=== PATIENT | female | born 2000 | race American Indian/Alaskan Native ===

== ENCOUNTER 2019-11-02 20:25 | Emergency (ER) | payer BC ==
[2019-11-02 21:24] LABS: Basophils % (Auto) 0.6 % (0.0-1.8); Eosinophils % (Auto) 0.4 % (0.0-4.3); Hematocrit 34.3 % (30.3-42.9); Hemoglobin 11.1 gm/dl (10.1-14.3); Lymphocytes # (Auto) 1.2 K/mm3 (1.2-5.4); Lymphocytes % (Auto) 15.5 % (13.4-35.0); Mean Corpuscular HGB Conc 32 % (30-34); Mean Corpuscular Volume 83 fl (79-97); Monocytes # (Auto) 0.7 K/mm3 (0.0-0.8); Monocytes % (Auto) 9.2 % (0.0-7.3); Platelet Count 286 K/mm3 (140-440); Red Blood Count 4.14 M/mm3 (3.65-5.03); Red Cell Distribution Width 15.1 % (13.2-15.2)
[2019-11-02 22:00] LABS: Bilirubin,Urine NEG (Negative); Blood,Urine LG (Negative); Color,Urine Yellow (Yellow); Mucus,Urine 3+ /HPF
[2019-11-02 22:03] LABS: RBC,Urine > 182.0 /HPF (0.0-6.0)
--- NOTE | 2019-11-02 22:58 | Ultrasound Report ---
Pelvic ultrasound INDICATION: , vaginal bleeding, pelvic pain COMPARISON: None TECHNIQUE: Transabdominal and endovaginal FINDINGS: Uterus measures 9.2 x 4.1 x 6 cm. Endometrial stripe by endovaginal study measures 11 mm. N o fluid is seen within the endometrial canal and no gestational sac is identified within the uterus. No focal uterine abnormalities are seen. The right ovary shows a 6 cm complex cyst with moderate focal internal echogenicity though without in creased vascularity. The left ovary is not identified. No left adnexal mass is seen. Moderate amount of free fluid is noted which appears to have moderate internal echogenicity as can be seen with bloody fluid. This is noted in the cul-de-sac and left adnexal region. IMPRESSION: 1. No IUP is identified 2. Complex right ovarian cyst cystic lesion, indeterminate 3. Moderate amount of free fluid in the pelvis which may be bloody. 4. Ectopic should be strongly considered though study is not definitive. Clinical assessmen t and follow-up are needed. CRITICAL RESULT: Time of Discovery (OFFICE MACHINE SERVICER APPRENTICE/CDT): 2144 Time of Communication (OFFICE MACHINE SERVICER APPRENTICE/CDT): 2149 Licensed Practitioner Receiving Report: Physician therapeutic recreation assistant Kelvin Lane Read-Back Performed: Not applicable. Signer Name: Sheldon Briscoe MD Signed: 11/02/2019 10:54 PM Workstation Name: [id number]
--- NOTE | 2019-11-02 22:58 | Ultrasound Report ---
Pelvic ultrasound INDICATION: , vaginal bleeding, pelvic pain COMPARISON: None TECHNIQUE: Transabdominal and endovaginal FINDINGS: Uterus measures 9.2 x 4.1 x 6 cm. Endometrial stripe by endovaginal study measures 11 mm. N o fluid is seen within the endometrial canal and no gestational sac is identified within the uterus. No focal uterine abnormalities are seen. The right ovary shows a 6 cm complex cyst with moderate focal internal echogenicity though without in creased vascularity. The left ovary is not identified. No left adnexal mass is seen. Moderate amount of free fluid is noted which appears to have moderate internal echogenicity as can be seen with bloody fluid. This is noted in the cul-de-sac and left adnexal region. IMPRESSION: 1. No IUP is identified 2. Complex right ovarian cyst cystic lesion, indeterminate 3. Moderate amount of free fluid in the pelvis which may be bloody. 4. Ectopic should be strongly considered though study is not definitive. Clinical assessmen t and follow-up are needed. CRITICAL RESULT: Time of Discovery (WELL REACTIVATOR OPERATOR/CDT): 2144 Time of Communication (WELL REACTIVATOR OPERATOR/CDT): 2149 Licensed Practitioner Receiving Report: Physician assistant merchandiser Kelvin Lane Read-Back Performed: Not applicable. Signer Name: Sheldon Briscoe MD Signed: 11/02/2019 10:54 PM Workstation Name: [id number]
--- NOTE | 2019-11-02 23:53 | Emergency Department Report ---
HPI - General Chief Complaint: Vaginal Bleeding Time Seen by Provider: 11/02/19 22:24 - HPI HPI: Room 21 The patient is a 19-year-old female present with a chief complaint of pelvic pain and vaginal bleeding. The patient is but has not yet seen an MANAGER PAYER for this . The patient states 4 days ago she had an episode of pelvic cramping and spotting so she went to the hospital had blood work performed but no ultrasound. The patient states the symptoms resolved but then again today she had cramping in the left pelvis and she passed 2 blood clots. Patient states she did not pass any tissue. Patient now complains of mild left-sided pain states her vaginal bleeding has stopped ED Past Medical Hx - Past Medical History Previous Medical History?: No - Surgical History Past Surgical History?: No - Family History Family history: no significant - Social History Smoking Status: Never Smoker Substance Use Type: None (Denies illicit drug use) - Medications Home Medications: Home Medications Medication Instructions Recorded Confirmed Last Taken Type Nitrofurantoin [place]/M-Cryst 100 mg PO Q12HR #20 capsule 11/03/19 Unknown Rx [Macrobid CAP] ED Review of Systems ROS: Stated complaint: CRAMPING/BLOOD CLOT Other details as noted in HPI Constitutional: no symptoms reported Respiratory: no symptoms reported Endocrine: no symptoms reported Gastrointestinal: abdominal pain Genitourinary: abnormal menses Physical Exam - Physical Exam Vital Signs: Vital Signs 11/02/19 20:30 Temperature 98.9 F Pulse Rate 87 Respiratory 20 Rate Blood Pressure 142/78 O2 Sat by Pulse 99 Oximetry Physical Exam: GENERAL: The patient is well-developed well-nourished female lying on stretcher not appearing to be in acute distress. [] HEENT: Normocephalic. Atraumatic. Extraocular motions are intact. Patient has moist mucous membranes. NECK: Supple. Trachea midline CHEST/LUNGS: Clear to auscultation. There is no respiratory distress noted. HEART/CARDIOVASCULAR: Regular. There is no tachycardia. There is no gallop rub or murmur. ABDOMEN: There is no guarding. Patient has normal bowel sounds. There is no abdominal distention. SKIN: There is no rash. There is no edema. There is no diaphoresis. NEURO: The patient is awake, alert, and oriented. The patient is cooperative. The patient has normal speech MUSCULOSKELETAL: There is no evidence of acute injury. ED Course Vital Signs 11/02/19 20:30 Temperature 98.9 F Pulse Rate 87 Respiratory 20 Rate Blood Pressure 142/78 O2 Sat by Pulse 99 Oximetry - Consultations Consultation #1: 11/03/19 00:20 MANAGER PAYER paged 11/03/19 01:[address] Matthew-have patient follow-up in office in 48 hours for reevaluation ED Medical Decision Making - Lab Data Result diagrams: 11/02/19 20:47 Laboratory Tests 11/02/19 11/02/19 11/02/19 20:47 20:47 20:47 WBC 7.8 RBC 4.14 Hgb 11.1 Hct 34.3 MCV 83 MCH 27 L MCHC 32 RDW 15.1 Plt Count 286 Lymph % (Auto) 15.5 [place] % (Auto) 9.2 H Eos % (Auto) 0.4 Baso % (Auto) 0.6 Lymph # 1.2 [place] # 0.7 Eos # 0.0 Baso # 0.0 Seg Neutrophils % 74.3 H Seg Neutrophils # 5.8 HCG, Quant 1116 H Urine Color Urine Turbidity Urine pH Ur Specific [place] Urine Protein Urine Glucose (UA) Urine Ketones Urine Blood Urine Nitrite Urine Bilirubin Urine Urobilinogen Ur Leukocyte Esterase Urine WBC (Auto) Urine RBC (Auto) U Epithel Cells (Auto) Urine Mucus Blood Type B POSITIVE 11/02/19 20:54 WBC RBC Hgb Hct MCV MCH MCHC RDW Plt Count Lymph % (Auto) [place] % (Auto) Eos % (Auto) Baso % (Auto) Lymph # [place] # Eos # Baso # Seg Neutrophils % Seg Neutrophils # HCG, Quant Urine Color Yellow Urine Turbidity Slightly-cloudy Urine pH 6.0 Ur Specific [place] 1.027 Urine Protein 100 mg/dl Urine Glucose (UA) Neg Urine Ketones Neg Urine Blood Lg Urine Nitrite Neg Urine Bilirubin Neg Urine Urobilinogen 4.0 Ur Leukocyte Esterase Neg Urine WBC (Auto) 27.0 H Urine RBC (Auto) > 182.0 U Epithel Cells (Auto) 3.0 Urine Mucus 3+ Blood Type - Radiology Data Radiology results: report reviewed (Pelvic ultrasound), image reviewed (Pelvic ultrasound) Findings [facility] [address] [place] [address] Ultrasound Report Signed Patient: PAO L[address] MR#: [id number] : 2000 Acct:[id number] Age/Sex: 19 / F ADM Date: 11/02/19 Loc: ED Attending Dr: Ordering Physician: KELVIN SCHWARTZ Date of Service: 11/02/19 Procedure(s): US OB transvaginal Accession Number(s): [id number] cc: KELVIN SCHWARTZ Pelvic ultrasound INDICATION: , vaginal bleeding, pelvic pain COMPARISON: None TECHNIQUE: Transabdominal and endovaginal FINDINGS: Uterus measures 9.2 x 4.1 x 6 cm. Endometrial stripe by endovaginal study measures 11 mm. No fluid is seen within the endometrial canal and no gestational sac is identified within the uterus. No focal uterine abnormalities are seen. The right ovary shows a 6 cm complex cyst with moderate focal internal echogenicity though without increased vascularity. The left ovary is not identified. No left adnexal mass is seen. Moderate amount of free fluid is noted which appears to have moderate internal echogenicity as can be seen with bloody fluid. This is noted in the cul-de-sac and left adnexal region. IMPRESSION: 1. No IUP is identified 2. Complex right ovarian cyst cystic lesion, indeterminate 3. Moderate amount of free fluid in the pelvis which may be bloody. 4. Ectopic should be strongly considered though study is not definitive. Clinical assessment and follow-up are needed. CRITICAL RESULT: Time of Discovery (CHILD DEVELOPMENT PROFESSOR/CDT): 2144 Time of Communication (CHILD DEVELOPMENT PROFESSOR/CDT): 2149 Licensed Practitioner Re ceiving Report: Physician historian research assistant Kelvin Lane Read-Back Performed: Not applicable. Signer Name: Sheldon Briscoe MD Signed: 11/02/2019 10:54 PM Workstation Name: [id number] Transcribed By: GJ Dictated By: Sheldon Briscoe MD Electronically Authenticated By: Sheldon Briscoe MD Signed Date/Time: 11/02/19 4602 DD/ 2245 TD/TT: - Differential Diagnosis Ectopic , missed , threatened , incomplete abortio Critical care attestation.: If time is entered above; I have spent that time in minutes in the direct care of this critically ill patient, excluding procedure time. ED Disposition Clinical Impression: Encounter for assessment for suspected ectopic , Threatened , UTI (urinary tract infection) Disposition: - TO HOME OR SELFCARE Is pt being admited?: No Does the pt Need Aspirin: No Condition: Stable Instructions: Ectopic (ED), Threatened Miscarriage (ED) Additional Instructions: Your serum hCG quant was measured at 1116. It is important that she follow-up with an MANAGER PAYER in 48 hours for reevaluation to rule out possible ectopic . Return to the emergency department should you develop worsening symptoms, inability to tolerate food or liquids, high fever or any other concerns Prescriptions: Nitrofurantoin [place]/M-Cryst [Macrobid CAP] 100 mg PO Q12HR #20 capsule Referrals: JAKE MATTHEW MD [Staff Physician] - 11/05/19 (Dr. Saint Dietrich is an O B/REGISTERED MIDWIFE. Please follow-up with her in 48 hours for further evaluation) Time of Disposition: 01:14
[2019-11-03 01:28] VITALS: BP 119/75
== END 2019-11-03 01:25 | disposition home or self-care (01) ==
LOC: ED 20:25
DX: O20.0 Threatened abortion (principal); O23.41 Unspecified infection of urinary tract in pregnancy, first trimester; Z3A.01 Less than 8 weeks gestation of pregnancy
CPT/HCPCS: 36415; 76801; 76817; 81001; 84702; 85025; 86900; 86901; 87086